=== PATIENT | male | born 1985 | race American Indian/Alaskan Native ===

== ENCOUNTER 2018-01-21 17:16 | Emergency (ER) | payer MEDICARE ==
[2018-01-22] MEDS ORDERED: ATIVAN ONE (02:45)
[2018-01-22] MEDS ORDERED: ATIVAN IM ONE (03:00)
--- NOTE | 2018-01-22 03:32 | Emergency Department Report ---
ED Laceration HPI - HPI Chief Complaint: Wound/Laceration Stated Complaint: GASH ON BOTTOM LIP Time Seen by Provider: 01/22/18 02:24 Occurred When: Yesterday Severity: mild Tetanus Status: Up to Date Laceration Symptoms: Yes Pain, No Foreign Body Sensation, No Numbness, No Weakness Other History: 32-year-old autistic male brought in by caregiver for a laceration to the bottom of his lip. Caregiver stated the patient was on a busIt was noted to have a laceration to his lower lip. He is up-to-date on all vaccines. ED Review of Systems ROS: Stated complaint: GASH ON BOTTOM LIP Other details as noted in HPI Constitutional: denies: chills, fever Eyes: denies: eye pain, eye discharge, vision change ENT: other (lip cut) Skin: other (lip cut) ED Past Medical Hx - Past Medical History Previous Medical History?: Yes Additional medical history: moderate intellectual disability, autism - Surgical History Past Surgical History?: No - Social History Smoking Status: Never Smoker - Medications Home Medications: Home Medications Medication Instructions Recorded Confirmed Last Taken Type Amoxicillin [Trimox CAP] 500 mg PO Q8H #15 capsule 01/22/18 Unknown Rx Laceration Physical Exam - Exam General: Vital signs noted. No distress. Alert and acting appropriately. Wound Length (cm): 2 Laceration Location: Other (lower lip) Laceration Exam: Yes Normal Distal CMS, No Foreign Body, No Exposed Tendon, Vessel, or Nerve, No Tendon Injury ED Course Vital Signs 01/21/18 17:29 Temperature 97.8 F Pulse Rate 94 H Respiratory 20 Rate Blood Pressure 108/78 O2 Sat by Pulse 95 Oximetry - Laceration /Wound Repair Lower Jaw Wound Location: face Wound Length (cm): 2 (vertical lower lip) Wound's Depth, Shape: into muscle, linear Wound Explored: no foreign body removed Irrigated w/ Saline (ccs): 45 Betadine Prep?: No Anesthesia: 1% Lidocaine Volume Anesthetic (ccs): 2 (buccal mucosa) Wound Repaired With: Dermabond Sterile Dressing Applied?: No Progress: Patient tolerated procedure well ED Medical Decision Making - Medical Decision Making Patient has been seen and evaluated by this provider as well as Dr. Keith. Dr. Keith came to an assisted with laceration repair. Patient was given 1 mg of Ativan IM to calm him down. Discussed patient caregiver that the glue should help hold for danger to while the healing process starts. Encouraged patient not to bite her pole at the lip. Place patient on antibiotics amoxicillin by mouth 500 mg twice a day for 5 days. Caregiver verbalized understanding Critical care attestation.: If time is entered above; I have spent that time in minutes in the direct care of this critically ill patient, excluding procedure time. ED Disposition Clinical Impression: Laceration of lower lip Qualifiers: Encounter type: initial encounter Qualified Code(s): S01.511A - Laceration without foreign body of lip, initial encounter Disposition: DC- TO HOME OR SELFCARE Is pt being admited?: No Does the pt Need Aspirin: No Condition: Stable Instructions: Skin Adhesive Care (ED), Laceration (ED) Additional Instructions: Please complete antibiotics as prescribed. Tylenol or Motrin for pain management. Please encourage patient not to pick and bite at his lower lip. Prescriptions: Amoxicillin [Trimox CAP] 500 mg PO Q8H #15 capsule Referrals: JOSE CHIRINOS MD [Primary Care Provider] - 3-5 Days Forms: Work/School Release Form(ED), Accompanied Note
[2018-01-22 03:53] VITALS: BP 112/82
== END 2018-01-22 03:52 | disposition home or self-care (01) ==
LOC: ED 17:16
DX: S01.511A Laceration without foreign body of lip, initial encounter (principal); X58.XXXA Exposure to other specified factors, initial encounter; Y93.89 Activity, other specified; Y92.89 Other specified places as the place of occurrence of the external cause; Y99.8 Other external cause status; F84.0 Autistic disorder
CPT/HCPCS: 12011; 96372; 99282; J2060

== ENCOUNTER 2019-03-02 12:19 | Inpatient (IN) | payer MEDICARE ==
--- NOTE | 2019-03-02 13:24 | Event Note ---
ED Screening Note Date of service: 03/02/19 Time: 13:20 ED Screening Note: 33 y o male brought in by pet care associate for abd pain hx of bowel obstruction This initial assessment/diagnostic orders/clinical plan/treatment(s) is/are subject to change based on patients health status, clinical progression and re- assessment by fellow clinical providers in the ED. Further treatment and workup at subsequent clinical providers discretion. Patient/guardian urged not to elope from the ED as their condition may be serious if not clinically assessed and managed. Initial orders include: labs/ct abd
[2019-03-02 14:03] LABS: Alanine Aminotransferase 22 units/L (7-56); Albumin 4.3 g/dL (3.9-5); BUN/Creatinine Ratio 13; Blood Urea Nitrogen 17 mg/dL (9-20); Calcium 9.5 mg/dL (8.4-10.2); Hemolysis Index 9
[2019-03-02] MEDS ORDERED: NACL 0.9% 1000 ML 1,000 ML IV ONE ×2 (14:19→17:58)
[2019-03-02 14:43] LABS: Basophils % (Auto) 0.5 % (0.0-1.8); Hematocrit 45.7 % (35.5-45.6); Hemoglobin 14.8 gm/dl (11.8-15.2); Lymphocytes # (Auto) 1.2 K/mm3 (1.2-5.4); Lymphocytes % (Auto) 14.5 % (13.4-35.0); Mean Corpuscular HGB Conc 32 % (32-34); Mean Corpuscular Volume 92 fl (84-94); Monocytes # (Auto) 0.8 K/mm3 (0.0-0.8); Platelet Count 331 K/mm3 (140-440); Red Blood Count 4.97 M/mm3 (3.65-5.03); Red Cell Distribution Width 14.1 % (13.2-15.2)
[2019-03-02 16:39] LABS: Bacteria,Urine 1+ /HPF (Negative); Bilirubin,Urine SM (Negative); Blood,Urine NEG (Negative); Color,Urine Amber (Yellow); Hyaline Casts,Urine 8 /LPF; Mucus,Urine 3+ /HPF
[2019-03-02 16:58] LABS: Ictotest,Urine Negative (Negative)
--- NOTE | 2019-03-02 17:38 | Cat Scan Report ---
CT ABDOMEN AND PELVIS WITHOUT CONTRAST INDICATION: pain. TECHNIQUE: Axial CT images were obtained through the abdomen and pelvis without IV contrast. All CT scans at [facility] location are performed using CT dose reduction for ALARA by means of automated exposure control. COMPARISON: CT abdomen and pelvis without contrast 03/02/2019 FINDINGS: Moderate amount of streak artifact is present from the patient's arms folded over the abdom en rather than left it overhead or placed along side the abdomen. LOWER CHEST: No significant abnormality. LIVER: No significant abnormality. GALLBLADDER: No significant abnormality. BILE DUCTS: No significant abnormality. PANCREAS: No significant abnormality. SPLEEN: No significant abnormality. ADRENALS: No significant abnormality. RIGHT KIDNEY and URETER: No significant abnormality. LEFT KIDNEY and URETER: No significant abnormality. STOMACH and SMALL BOWEL: Moderately dilated fluid-filled loops of small bowel with transition point s een in the distal ileum characteristic for distal small bowel obstruction. COLON: No significant abnormality. APPENDIX: Not visualized possibly surgically absent. PERITONEUM: No free fluid. No free air. No fluid collection. LYMPH NODES: No significant adenopathy. AORTA and ARTERIES: No significant abnormality. IVC and VEINS: No significant abnormality. URINARY BLADDER: No significant abnormality. REPRODUCTIVE ORGANS: No significant abnormality. ADDITIONAL FINDINGS: None. SKELETAL SYSTEM: No significant abnormality. IMPRESSION: 1. Distal small bowel obstruction. Signer Name: Connor Martinez MD Signed: 03/02/2019 5:33 PM Workstation Name: [id number]
--- NOTE | 2019-03-02 18:11 | Emergency Department Report ---
ED Abdominal Pain HPI - General Chief Complaint: Abdominal Pain Stated Complaint: ABDOMINAL PAIN Time Seen by Provider: 03/02/19 13:20 Source: patient Mode of arrival: Ambulatory Limitations: Other - History of Present Illness Initial Comments: 33 yo with a past medical history of a moderate intellectual delay, autism, and small bowel obstruction is possible with complaints of decreased by mouth intake today. Patient was apparently admitted to [facility] last week for first episode of small bowel obstruction. No previous surgeries on his abdomen reported. Patient was treated with bowel rest and NG tube with resolution of obstruction. Patient has been doing fine since discharge him, today he stopped eating. Last bowel movement was this morning. No vomiting or fever reported. Patient is unable to provide any history of present illness due to intellectual disability.and history of present illness obtained from asphalt mixer and father at the bedside. Severity scale (0 -10): 0 - Related Data Previous Rx's Medication Instructions Recorded Last Taken Type Amoxicillin [Trimox CAP] 500 mg PO Q8H #15 capsule 01/22/18 Unknown Rx Allergies Allergy/AdvReac Type Severity Reaction Status Date / Time No Known Allergies Allergy Verified 01/22/18 03:05 ED Review of Systems ROS: Stated complaint: ABDOMINAL PAIN Other details as noted in HPI Comment: Unobtainable due to pts medical conditions ED Past Medical Hx - Past Medical History Previous Medical History?: Yes Additional medical history: moderate intellectual disability, autism - Surgical History Past Surgical History?: Yes - Social History Smoking Status: Never Smoker Substance Use Type: None - Medications Home Medications: Home Medications Medication Instructions Recorded Confirmed Last Taken Type Amoxicillin [Trimox CAP] 500 mg PO Q8H #15 capsule 01/22/18 Unknown Rx ED Physical Exam - General Limitations: Other - Other Other exam information: General: No acute distress Head: Atraumatic Eyes: Normal appearance, Pupils equal and reactive to light, extraocular movements intact ENT: Normal oropharynx Neck: Normal appearance, no posterior or midline tenderness, no meningismus Chest: Clear to auscultation bilaterally, no wheezes, rales, or crackles CV: Regular rate and rhythm Abdomen: soft, diminished bowel sound, nontender, nondistended, no rebound or guarding Back: Nontender Extremity: Normal inspection, full range of motion, nontender Neuro: Alert no gross motor or sensory deficit Skin: No rash, redness, warmth ED Course Vital Signs 03/02/19 03/02/19 13:13 17:48 Temperature 97.2 F L 97.8 F Pulse Rate 123 H 112 H Respiratory 18 20 Rate Blood Pressure 131/86 Blood Pressure 120/80 [Left] O2 Sat by Pulse 97 96 Oximetry - Consultations Consultation #1: 03/02/19 18:45 Dr Gio guerrero surgery, rec ngt, admission, will consult ED Medical Decision Making - Lab Data Result diagrams: 03/02/19 13:28 03/02/19 13:28 Lab Results 03/02/19 03/02/19 03/02/19 Range/Units 13:28 13:28 Unknown WBC 8.4 (4.5-11.0) K/mm3 RBC 4.97 (3.65-5.03) M/mm3 Hgb 14.8 (11.8-15.2) gm/dl Hct 45.7 H (35.5-45.6) % MCV 92 (84-94) fl MCH 30 (28-32) pg MCHC 32 (32-34) % RDW 14.1 (13.2-15.2) % Plt Count 331 (140-440) K/mm3 Lymph % (Auto) 14.5 (13.4-35.0) % [facility] % (Auto) 9.0 H (0.0-7.3) % Eos % (Auto) 0.0 (0.0-4.3) % Baso % (Auto) 0.5 (0.0-1.8) % Lymph # 1.2 (1.2-5.4) K/mm3 [facility] # 0.8 (0.0-0.8) K/mm3 Eos # 0.0 (0.0-0.4) K/mm3 Baso # 0.0 (0.0-0.1) K/mm3 Seg Neutrophils % 76.0 H (40.0-70.0) % Seg Neutrophils # 6.4 (1.8-7.7) K/mm3 Sodium 139 (137-145) mmol/L Potassium 4.5 (3.6-5.0) mmol/L Chloride 102.0 (98-107) mmol/L Carbon Dioxide 21 L (22-30) mmol/L Anion Gap 21 mmol/L BUN 17 (9-20) mg/dL Creatinine 1.3 (0.8-1.5) mg/dL Estimated GFR > 60 ml/min BUN/Creatinine Ratio 13 % Glucose 97 (75-100) mg/dL Calcium 9.5 (8.4-10.2) mg/dL Total Bilirubin 0.30 (0.1-1.2) mg/dL AST 15 (5-40) units/L ALT 22 (7-56) units/L Alkaline Phosphatase 76 (35-129) units/L Total Protein 8.5 H (6.3-8.2) g/dL Albumin 4.3 (3.9-5) g/dL Albumin/Globulin Ratio 1.0 % Lipase 26 (13-60) units/L Urine Color Regine (Yellow) Urine Turbidity Slightly-cloudy (Clear) Urine pH 5.0 (5.0-7.0) Ur Specific [place] 1.032 H (1.003-1.030) Urine Protein 30 mg/dl (Negative) mg/dL Urine Glucose (UA) Neg (Negative) mg/dL Urine Ketones Tr (Negative) mg/dL Urine Blood Neg (Negative) Urine Nitrite Neg (Negative) Urine Bilirubin Sm (Negative) Urine Ictotest Negative (Negative) Urine Urobilinogen 4.0 (<2.0) mg/dL Ur Leukocyte Esterase Neg (Negative) Urine WBC (Auto) 4.0 (0.0-6.0) /HPF Urine RBC (Auto) 3.0 (0.0-6.0) /HPF U Epithel Cells (Auto) < 1.0 (0-13.0) /HPF Urine Bacteria (Auto) 1+ (Negative) /HPF Hyaline Casts 8 /LPF Urine Mucus 3+ /HPF - Radiology Data Radiology results: report reviewed CT ABDOMEN AND PELVIS WITHOUT CONTRAST INDICATION: pain. TECHNIQUE: Axial CT im ages were obtained through the abdomen and pelvis without IV contrast. All CT scans at this location are performed using CT dose reduction for ALARA by means of automated exposure control. COMPARISON: CT abdomen and pelvis without contrast 03/02/2019 FINDINGS: Moderate amount of streak artifact is present from the patient's arms folded over the abdomen rather than left it overhead or placed along side the abdomen. LOWER CHEST: No significant abnormality. LIVER: No significant abnormality. GALLBLADDER: No significant abnormality. BILE DUCTS: No significant abnormality. PANCREAS: No significant abnormality. SPLEEN: No significant abnormality. ADRENALS: No significant abnormality. RIGHT KIDNEY and URETER: No significant abnormality. LEFT KIDNEY and URETER: No significant abnormality. STOMACH and SMALL BOWEL: Moderately dilated fluid-filled loops of small bowel with transition point seen in the distal ileum characteristic for distal small bowel obstruction. COLON: No significant abnormality. APPENDIX: Not visualized possibly surgically absent. PERITONEUM: No free fluid. No free air. No fluid collection. LYMPH NODES: No significant adenopathy. AORTA and ARTERIES: No significant abnormality. IVC and VEINS: No significant abnormality. URINARY BLADDER: No significant abnormality. REPRODUCTIVE ORGANS: No significant abnormality. ADDITIONAL FINDINGS: None. SKELETAL SYSTEM: No significant abnormality. IMPRESSION: 1. Distal small bowel obstruction. - Medical Decision Making Patient shows signs of distal small bowel obstruction. Case discussed with general surgeon software test automation engineer. CT reviewed and shows significant distention of small bowel different NG tube recommended. Father and care to asphalt mixer formed a plan for NG tube and admission to the hospital. - Differential Diagnosis obstruction, constipation, dehydration, ileus Critical Care Time: No Critical care attestation.: If time is entered above; I have spent that time in minutes in the direct care of this critically ill patient, excluding procedure time. ED Disposition Clinical Impression: Small bowel obstruction, Dehydration Disposition: DC-09 OP ADMIT IP TO THIS HOSP Is pt being admited?: Yes Condition: Stable Time of Disposition: 18:13 (Dr Garcia/hosp)
[2019-03-02] MEDS ORDERED: LIDOCAINE VISCOUS 2% PO ONE (18:17)
[2019-03-02] MEDS ORDERED: GEODON IM ONE (18:27)
[2019-03-02] MEDS ORDERED: SODIUM CHLORIDE FLUSH SYRINGE 10 ML IV PRN (19:32)
[2019-03-02] MEDS ORDERED: ZOFRAN IV PRN (19:32)
[2019-03-02] MEDS ORDERED: MORPHINE IV PRN (19:32)
[2019-03-02] MEDS ORDERED: TYLENOL PO PRN (19:32)
[2019-03-02] MEDS ORDERED: ATIVAN IV ONE ×2 (19:55→23:11)
--- NOTE | 2019-03-02 20:06 | History and Physical Report ---
History of Present Illness Date of examination: 03/02/19 Date of admission: 03/02/2019 Chief complaint: Abdominal Pain, abdominal distention History of present illness: 33-year-old -[place] male who is a resident of [facility] with history of moderate intellectual delay, autism whp [facility] with c/o abdominal pain and distention, and decreased oral intake for the past day. Pt is unable to provide his due to his intellectual delay. His father is present at bedside and has assisted with providing history. Pt's father states that pt was hospitalized last week at [facility] for small bowel obstruction. He was treated conservatively with bowel rest and decompress via NGT. Pt has no history of abdominal surgeries. Father also states that pt has had poor oral intake for the past day. There are no reports of constipation, nausea, vomiting, or diarrhea. Past History Past Medical History: other (moderate intellectual delay autism, SBO) Past Surgical History: No surgical history Social history: other (Lives in [facility]) Family history: no significant family history Medications and Allergies Allergies Allergy/AdvReac Type Severity Reaction Status Date / Time No Known Allergies Allergy Verified 01/22/18 03:05 Home Medications Medication Instructions Recorded Confirmed Last Taken Type Amoxicillin [Trimox CAP] 500 mg PO Q8H #15 capsule 01/22/18 Unknown Rx Active Meds: Active Medications Acetaminophen (Tylenol) 650 mg PO Q4H PRN PRN Reason: Pain MILD(1-3)/Fever >100.5/MENA Sodium Chloride (Nacl 0.9% 1000 Ml) 1,000 mls @ 100 mls/hr IV DIRECT ANTOINE Morphine Sulfate (Morphine) 2 mg IV Q4H PRN PRN Reason: Pain, Moderate (4-6) Ondansetron HCl (Zofran) 4 mg IV Q8H PRN PRN Reason: Nausea And Vomiting Sodium Chloride (Sodium Chloride Flush Syringe 10 Ml) 10 ml IV BID ANTOINE Sodium Chloride (Sodium Chloride Flush Syringe 10 Ml) 10 ml IV PRN PRN PRN Reason: LINE FLUSH Review of Systems ROS unobtainable: due to mental status Exam - Physical Exam Narrative exam: Physical exam General appearance: Present: No apparent distress, awake, alert, unable to determine orientation,moderate intellectual delay, adult -[place] male - EENT Eyes: Present: PERRL, EOM intact ENT: hearing intact, normal dentition - Neck Neck: Present: supple, normal ROM - Respiratory Respiratory effort: Non-labored Respiratory: CTA bilaterally - Cardiovascular Heart rate: 112 (bpm) Rhythm: SR Heart Sounds: Present: S1 & S2. Absent: rub, click - Extremities Extremities: no ischemia, pulses intact, - Peripheral Assessment Peripheral Pulses: within normal limits - Abdominal General gastrointestinal: distended, mild diffuse tenderness, active bsx4 - Integumentary Integumentary: Present: warm, dry - Musculoskeletal Musculoskeletal: able to move all extremities x4 -Neurological Neurological: CN II-XII grossly intact - Psychiatric Psychiatric: flat affect - Constitutional Vitals: Temp Pulse Resp BP Pulse Ox 97.8 F 112 H 20 120/80 94 03/02/19 17:48 03/02/19 17:48 03/02/19 19:27 03/02/19 17:48 03/02/19 19:27 Results - Labs CBC & Chem 7: 03/02/19 13:28 03/02/19 13:28 Labs: Laboratory Last Values WBC 8.4 K/mm3 (4.5-11.0) 03/02/19 13:28 RBC 4.97 M/mm3 (3.65-5.03) 03/02/19 13:28 Hgb 14.8 gm/dl (11.8-15.2) 03/02/19 13:28 Hct 45.7 % (35.5-45.6) H 03/02/19 13:28 MCV 92 fl (84-94) 03/02/19 13:28 MCH 30 pg (28-32) 03/02/19 13:28 MCHC 32 % (32-34) 03/02/19 13:28 RDW 14.1 % (13.2-15.2) 03/02/19 13:28 Plt Count 331 K/mm3 (140-440) 03/02/19 13:28 Lymph % (Auto) 14.5 % (13.4-35.0) 03/02/19 13:28 Jay % (Auto) 9.0 % (0.0-7.3) H 03/02/19 13:28 Eos % (Auto) 0.0 % (0.0-4.3) 03/02/19 13:28 Baso % (Auto) 0.5 % (0.0-1.8) 03/02/19 13:28 Lymph # 1.2 K/mm3 (1.2-5.4) 03/02/19 13:28 Jay # 0.8 K/mm3 (0.0-0.8) 03/02/19 13:28 Eos # 0.0 K/mm3 (0.0-0.4) 03/02/19 13:28 Baso # 0.0 K/mm3 (0.0-0.1) 03/02/19 13:28 Seg Neutrophils % 76.0 % (40.0-70.0) H 03/02/19 13:28 Seg Neutrophils # 6.4 K/mm3 (1.8-7.7) 03/02/19 13:28 Sodium 139 mmol/L (137-145) 03/02/19 13:28 Potassium 4.5 mmol/L (3.6-5.0) 03/02/19 13:28 Chloride 102.0 mmol/L (98-107) 03/02/19 13:28 Carbon Dioxide 21 mmol/L (22-30) L 03/02/19 13:28 21 mmol/L 03/02/19 13:28 BUN 17 mg/dL (9-20) 03/02/19 13:28 1.3 mg/dL (0.8-1.5) 03/02/19 13:28 Estimated GFR > 60 ml/min 03/02/19 13:28 13 % 03/02/19 13:28 Glucose 97 mg/dL (75-100) 03/02/19 13:28 Calcium 9.5 mg/dL (8.4-10.2) 03/02/19 13:28 0.30 mg/dL (0.1-1.2) 03/02/19 13:28 AST 15 units/L (5-40) 03/02/19 13:28 ALT 22 units/L (7-56) 03/02/19 13:28 76 units/L (35-129) 03/02/19 13:28 8.5 g/dL (6.3-8.2) H 03/02/19 13:28 4.3 g/dL (3.9-5) 03/02/19 13:28 1.0 % 03/02/19 13:28 26 units/L (13-60) 03/02/19 13:28 Regine (Yellow) 03/02/19 Unknown Slightly-cloudy (Clear) 03/02/19 Unknown 5.0 (5.0-7.0) 03/02/19 Unknown Ur Specific [place] 1.032 (1.003-1.030) H 03/02/19 Unknown 30 mg/dl mg/dL (Negative) 03/02/19 Unknown Neg mg/dL (Negative) 03/02/19 Unknown Tr mg/dL (Negative) 03/02/19 Unknown Neg (Negative) 03/02/19 Unknown Neg (Negative) 03/02/19 Unknown Sm (Negative) 03/02/19 Unknown Negative (Negative) 03/02/19 Unknown 4.0 mg/dL (<2.0) 03/02/19 Unknown Ur Leukocyte Esterase Neg (Negative) 03/02/19 Unknown 4.0 /HPF (0.0-6.0) 03/02/19 Unknown 3.0 /HPF (0.0-6.0) 03/02/19 Unknown U Epithel Cells (Auto) < 1.0 /HPF (0-13.0) 03/02/19 Unknown 1+ /HPF (Negative) 03/02/19 Unknown Hyaline Casts 8 /LPF 03/02/19 Unknown 3+ /HPF 03/02/19 Unknown - Imaging and Cardiology Imaging and Cardiology: CT Abd/Pelvis: FINDINGS: Moderate amount of streak artifact is present from the patient's arms folded over the abdomen rather than left it overhead or placed along side the abdomen. LOWER CHEST: No significant abnormality. LIVER: No significant abnormality. GALLBLADDER: No significant abnormality. BILE DUCTS: No significant abnormality. PANCREAS: No significant abnormality. SPLEEN: No significant abnormality. ADRENALS: No significant abnormality. RIGHT KIDNEY and URETER: No significant abnormality. LEFT KIDNEY and URETER: No significant abnormality. STOMACH and SMALL BOWEL: Moderately dilated fluid-filled loops of small bowel with transition point seen in the distal ileum characteristic for distal small bowel obstruction. COLON: No significant abnormality. APPENDIX: Not visualized possibly surgically absent. PERITONEUM: No free fluid. No free air. No fluid collection. LYMPH NODES: No significant adenopathy. AORTA and ARTERIES: No significant abnormality. IVC and VEINS: No significant abnormality. URINARY BLADDER: No significant abnormality. REPRODUCTIVE ORGANS: No significant abnormality. ADDITIONAL FINDINGS: None. SKELETAL SYSTEM: No significant abnormality. IMPRESSION: 1. Distal small bowel obstruction. Assessment and Plan Assessment and plan: 33-year-old -[place] male who is a resident of [facility] with history of moderate intellectual delay, autism whp presents to [facility] ED with c/o abdominal pain and distention, and decreased oral intake for the past day. This is pt's second episode of bowel obstruction within the past week and a half. Small Bowel obstruction -CT Abd/ Pelvis revealed; Moderately dilated fluid-filled loops of small bowel with transition point seen in the distal ileum characteristic for distal small bowel obstruction -Pt Abd is distended -NPO bowel rest -NGT to LIS -Hydrate with IVF -General Surgery (Dr. Chavis) consulted DVT PPX -SCD's Advance Directives: No VTE prophylaxis?: Mechanical Plan of care discussed with patient/family: Yes
[2019-03-02] MEDS: SODIUM CHLORIDE FLUSH SYRINGE 10 ML IV SCH (22:05)
[2019-03-03 04:34] LABS: Hematocrit 39.1 % (35.5-45.6); Hemoglobin 12.8 gm/dl (11.8-15.2); Mean Corpuscular HGB Conc 33 % (32-34); Mean Corpuscular Volume 92 fl (84-94); Platelet Count 253 K/mm3 (140-440); Red Blood Count 4.26 M/mm3 (3.65-5.03); Red Cell Distribution Width 13.5 % (13.2-15.2)
[2019-03-03 04:50] LABS: BUN/Creatinine Ratio 18; Blood Urea Nitrogen 18 mg/dL (9-20); Calcium 8.4 mg/dL (8.4-10.2); Hemolysis Index 44
[2019-03-03 05:24] LABS: Basophils % (Manual) 0 % (0.0-1.8); Eosinophils % (Manual) 0 % (0.0-4.3); Platelet Estimate Consistent w Auto; RBC Morphology Normal; Total Cells Counted 100
--- NOTE | 2019-03-03 08:57 | XRay Report ---
ABDOMEN 1 VIEW(S) INDICATION / CLINICAL INFORMATION: assess SBO. COMPARISON: None available. FINDINGS: TUBES / LINES: NG tube is seen with the tip in the region of the pylorus. BOWEL GAS PATTERN: There is diffuse distention of the colon with only minimal small bowel distention. The findings are more consistent with ileus than bowel obstruction. FREE AIR / EXTRALUMINAL GAS: None seen. ADDITIONAL FINDINGS: No significant additional findings. IMPRESSION: 1. NG tube in stomach. Probable mild to moderate ileus Signer Name: Heath Hanson MD Signed: 03/03/2019 8:53 AM Workstation Name: [id number]
[2019-03-03] MEDS: SODIUM CHLORIDE FLUSH SYRINGE 10 ML IV SCH ×2 (12:59→22:32)
--- NOTE | 2019-03-03 14:24 | Progress Note ---
Assessment and Plan Assessment and plan: Patient is a 33-year-old [place] male from [place] with history of moderate intellectual delay, autism who presents to [facility] ED with c/o abdominal pain and distention, and decreased oral intake for the past day. Pt is unable to provide his due to his intellectual delay. His father is present at bedside and has assisted with providing history. Pt's father states that pt was hospitalized last week at [facility] [place] for small bowel obstruction. He was treated conservatively with bowel rest and decompress via NGT. Pt has no history of abdominal surgeries. Father also states that pt has had poor oral intake for the past day. There are no reports of constipation, nausea, vomiting, or diar doc. CT Abd/Pelvis IMPRESSION: 1. Distal small bowel obstruction. Small Bowel obstruction -CT Abd/ Pelvis revealed; Moderately dilated fluid-filled loops of small bowel with transition point seen in the distal ileum characteristic for distal small bowel obstruction -Pt Abd is distended -NPO bowel rest -NGT to LIS -Hydrate with IVF -General Surgery (Dr. Chavis) consulted History Interval history: Patient was seen and examined. Follow-up on current diagnosis of SBO. No overnight events reported to me, but pt given IV ativan for anxiety and agitation, now snoring. Imaging, nursing note, chart, labs and old chart reviewed. Discussed with father at bedside, Mr. Omari Stanley. Hospitalist Physical - Physical exam Narrative exam: Gen: WDWN, obese, NAD, sleeping HEENT: NCAT, EOMI, PERRL, OP Clear Neck: supple, no adenopathy, no thyromegaly, no JVD CVS/Heart: Reg tachy, normal S1S2, pulses present bilaterally Chest/Lungs: CTA B, Symmetrical chest expansion, good air entry bilaterally GI/Abdomen: soft, protubernant, hypoactive bowel sounds, no guarding or rebound /Bladder: no suprapubic tenderness, no CVA or paraspinal tenderness Extermity/Skin: no c/c/e, no obvious rash MSK: doesn't follow commands Neuro: CN 2-12 grossly intact, doesn't follow commands Psych: sleeping - Constitutional Vitals: Temp Pulse Resp BP Pulse Ox 98.7 F 102 H 20 127/75 96 03/03/19 12:30 03/03/19 05:36 03/03/19 12:30 03/03/19 12:30 03/03/19 05:36 Results - Labs CBC & Chem 7: 03/03/19 03:57 03/03/19 03:57 Labs: Laboratory Last Values WBC 6.0 K/mm3 (4.5-11.0) 03/03/19 03:57 RBC 4.26 M/mm3 (3.65-5.03) 03/03/19 03:57 Hgb 12.8 gm/dl (11.8-15.2) 03/03/19 03:57 Hct 39.1 % (35.5-45.6) D 03/03/19 03:57 MCV 92 fl (84-94) 03/03/19 03:57 MCH 30 pg (28-32) 03/03/19 03:57 MCHC 33 % (32-34) 03/03/19 03:57 RDW 13.5 % (13.2-15.2) 03/03/19 03:57 Plt Count 253 K/mm3 (140-440) 03/03/19 03:57 Lymph % (Auto) 14.5 % (13.4-35.0) 03/02/19 13:28 [place] % (Auto) 9.0 % (0.0-7.3) H 03/02/19 13:28 Eos % (Auto) 0.0 % (0.0-4.3) 03/02/19 13:28 Baso % (Auto) 0.5 % (0.0-1.8) 03/02/19 13:28 Lymph # 1.2 K/mm3 (1.2-5.4) 03/02/19 13:28 [place] # 0.8 K/mm3 (0.0-0.8) 03/02/19 13:28 Eos # 0.0 K/mm3 (0.0-0.4) 03/02/19 13:28 Baso # 0.0 K/mm3 (0.0-0.1) 03/02/19 13:28 Add Manual Diff Complete 03/03/19 03:57 Total Counted 100 03/03/19 03:57 Seg Neutrophils % 76.0 % (40.0-70.0) H 03/02/19 13:28 Seg Neuts % (Manual) 70.0 % (40.0-70.0) 03/03/19 03:57 0 % 03/03/19 03:57 20.0 % (13.4-35.0) 03/03/19 03:57 Reactive Lymphs % (Man) 5.0 % 03/03/19 03:57 4.0 % (0.0-7.3) 03/03/19 03:57 0 % (0.0-4.3) 03/03/19 03:57 0 % (0.0-1.8) 03/03/19 03:57 1.0 % 03/03/19 03:57 0 % 03/03/19 03:57 0 % 03/03/19 03:57 0 % 03/03/19 03:57 Nucleated RBC % Not Reportable 03/03/19 03:57 Seg Neutrophils # 6.4 K/mm3 (1.8-7.7) 03/02/19 13:28 Seg Neutrophils # Man 4.2 K/mm3 (1.8-7.7) 03/03/19 03:57 Band Neutrophils # 0.0 K/mm3 03/03/19 03:57 1.2 K/mm3 (1.2-5.4) 03/03/19 03:57 Abs React Lymphs (Man) 0.3 K/mm3 03/03/19 03:57 0.2 K/mm3 (0.0-0.8) 03/03/19 03:57 0.0 K/mm3 (0.0-0.4) 03/03/19 03:57 0.0 K/mm3 (0.0-0.1) 03/03/19 03:57 0.1 K/mm3 03/03/19 03:57 0.0 K/mm3 03/03/19 03:57 0.0 K/mm3 03/03/19 03:57 Blast Cells # 0.0 K/mm3 03/03/19 03:57 WBC Morphology Not Reportable 03/03/19 03:57 Hypersegmented Neuts Not Reportable 03/03/19 03:57 Hyposegmented Neuts Not Reportable 03/03/19 03:57 Hypogranular Neuts Not Reportable 03/03/19 03:57 Not Reportable 03/03/19 03:57 Not Reportable 03/03/19 03:57 Not Reportable 03/03/19 03:57 Not Reportable 03/03/19 03:57 Not Reportable 03/03/19 03:57 Not Reportable 03/03/19 03:57 Consistent w auto 03/03/19 03:57 Not Reportable 03/03/19 03:57 Plt Clumps, EDTA Not Reportable 03/03/19 03:57 Not Reportable 03/03/19 03:57 Not Reportable 03/03/19 03:57 Not Reportable 03/03/19 03:57 Plt Morphology Comment Not Reportable 03/03/19 03:57 RBC Morphology Normal 03/03/19 03:57 Dimorphic RBCs Not Reportable 03/03/19 03:57 Not Reportable 03/03/19 03:57 Not Reportable 03/03/19 03:57 Not Reportable 03/03/19 03:57 Not Reportable 03/03/19 03:57 Not Reportable 03/03/19 03:57 Not Reportable 03/03/19 03:57 Not Reportable 03/03/19 03:57 Not Reportable 03/03/19 03:57 Not Reportable 03/03/19 03:57 Not Reportable 03/03/19 03:57 Not Reportable 03/03/19 03:57 Not Reportable 03/03/19 03:57 Not Reportable 03/03/19 03:57 Not Reportable 03/03/19 03:57 Not Reportable 03/03/19 03:57 Not Reportable 03/03/19 03:57 Not Reportable 03/03/19 03:57 Not Reportable 03/03/19 03:57 Not Reportable 03/03/19 03:57 Acanthocytes (Spur) Not Reportable 03/03/19 03:57 Rouleaux Not Reportable 03/03/19 03:57 Not Reportable 03/03/19 03:57 Not Reportable 03/03/19 03:57 Not Reportable 03/03/19 03:57 Not Reportable 03/03/19 03:57 Hem Pathologist Commnt No 03/03/19 03:57 Sodium 140 mmol/L (137-145) 03/03/19 03:57 Potassium 4.3 mmol/L (3.6-5.0) 03/03/19 03:57 Chloride 107.1 mmol/L (98-107) H 03/03/19 03:57 Carbon Dioxide 21 mmol/L (22-30) L 03/03/19 03:57 16 mmol/L 03/03/19 03:57 BUN 18 mg/dL (9-20) 03/03/19 03:57 1.0 mg/dL (0.8-1.5) 03/03/19 03:57 Estimated GFR > 60 ml/min 03/03/19 03:57 18 % 03/03/19 03:57 Glucose 93 mg/dL (75-100) 03/03/19 03:57 Calcium 8.4 mg/dL (8.4-10.2) 03/03/19 03:57 0.30 mg/dL (0.1-1.2) 03/02/19 13:28 AST 15 units/L (5-40) 03/02/19 13:28 ALT 22 units/L (7-56) 03/02/19 13:28 76 units/L (35-129) 03/02/19 13:28 8.5 g/dL (6.3-8.2) H 03/02/19 13:28 4.3 g/dL (3.9-5) 03/02/19 13:28 1.0 % 03/02/19 13:28 26 units/L (13-60) 03/02/19 13:28 Reg[place] (Yellow) 03/02/19 Unknown Slightly-cloudy (Clear) 03/02/19 Unknown 5.0 (5.0-7.0) 03/02/19 Unknown Ur Specific [place] 1.032 (1.003-1.030) H 03/02/19 Unknown 30 mg/dl mg/dL (Negative) 03/02/19 Unknown Neg mg/dL (Negative) 03/02/19 Unknown Tr mg/dL (Negative) 03/02/19 Unknown Neg (Negative) 03/02/19 Unknown Neg (Negative) 03/02/19 Unknown Sm (Negative) 03/02/19 Unknown Negative (Negative) 03/02/19 Unknown 4.0 mg/dL (<2.0) 03/02/19 Unknown Ur Leukocyte Esterase Neg (Negative) 03/02/19 Unknown 4.0 /HPF (0.0-6.0) 03/02/19 Unknown 3.0 /HPF (0.0-6.0) 03/02/19 Unknown U Epithel Cells (Auto) < 1.0 /HPF (0-13.0) 03/02/19 Unknown 1+ /HPF (Negative) 03/02/19 Unknown Hyaline Casts 8 /LPF 03/02/19 Unknown 3+ /HPF 03/02/19 Unknown Active Medications - Current Medications Current Medications: Generic Name Dose Route Start Last Admin Trade Name Freq PRN Reason Stop Dose Admin Acetaminophen 650 mg 03/02/19 19:32 Tylenol PO Q4H PRN Pain MILD(1-3)/Fever >100.5/MENA Sodium Chloride 1,000 mls @ 100 mls/hr 03/02/19 20:00 Nacl 0.9% 1000 Ml IV DIRECT ANTOINE Morphine Sulfate 2 mg 03/02/19 19:32 Morphine IV Q4H PRN Pain, Moderate (4-6) Ondansetron HCl 4 mg 03/02/19 19:32 Zofran IV Q8H PRN Nausea And Vomiting Sodium Chloride 10 ml 03/02/19 22:00 03/03/19 12:59 Sodium Chloride Flush Syringe 10 Ml IV 10 ml BID ANTOINE Administration Sodium Chloride 10 ml 03/02/19 19:32 Sodium Chloride Flush Syringe 10 Ml IV PRN PRN LINE FLUSH
--- NOTE | 2019-03-03 15:05 | Consultation ---
History of Present Illness Consult date: 03/03/19 Reason for consult: abdominal pain Requesting physician: JUNI OSW Chief complaint: not eating - History of present illness History of present illness: 33 yo M with autism and developmental delay who currently lives in a usp was brought to the ED by father as the patient stopped eating. They were in [facility] last week for first episode of small bowel obstruction. Patient was treated with bowel rest and NG tube with resolution of obstruction. Patient has been doing fine since discharge him, today he stopped eating. No vomiting or fever reported. Patient is unable to provide any history of present illness due to intellectual disability.and history of present illness obtained from mobility engineer and father at the bedside. General surgery consulted for possible bowel obstruction. Today, patient had a large bowel movement in bed. Father and usp x ray control equipment repairer reports that he is acting back to normal. He is asking to eat and drink. He is not acting like he was when they brought him to the emergency room. Past History Past Medical History: other (moderate intellectual delay autism, SBO) Past Surgical History: Other (COAL CHEMIST shunt at the age of 4) Social history: other (Lives in usp for autistic adults) Family history: no significant family history Medications and Allergies Allergies Allergy/AdvReac Type Severity Reaction Status Date / Time No Known Allergies Allergy Verified 01/22/18 03:05 Home Medications Medication Instructions Recorded Confirmed Last Taken Type Amoxicillin [Trimox CAP] 500 mg PO Q8H #15 capsule 01/22/18 Unknown Rx Benztropine [Cogentin] 0.5 mg PO 03/03/[address] [Holly Escobar] 500 mg PO QHS 03/03/19 03/03/19 Unknown History Divalproex Sodium 250 mg PO TID 03/03/19 03/03/19 Unknown History FLUoxetine [PROzac] 20 mg PO DAILY 03/03/19 03/03/19 Unknown History Miralax QDAY 03/03/19 Unknown History Topiramate 50 mg PO BID 03/03/19 03/03/19 Unknown History clonazePAM [Klonopin] 1 mg PO TID 03/03/19 03/03/19 Unknown History Active Meds: Active Medications Acetaminophen (Tylenol) 650 mg PO Q4H PRN PRN Reason: Pain MILD(1-3)/Fever >100.5/MENA Sodium Chloride (Nacl 0.9% 1000 Ml) 1,000 mls @ 100 mls/hr IV DIRECT ANTOINE Morphine Sulfate (Morphine) 2 mg IV Q4H PRN PRN Reason: Pain, Moderate (4-6) Ondansetron HCl (Zofran) 4 mg IV Q8H PRN PRN Reason: Nausea And Vomiting Sodium Chloride (Sodium Chloride Flush Syringe 10 Ml) 10 ml IV BID ANTOINE Last Admin: 03/03/19 12:59 Dose: 10 ml Documented by: Sodium Chloride (Sodium Chloride Flush Syringe 10 Ml) 10 ml IV PRN PRN PRN Reason: LINE FLUSH Review of Systems ROS unobtainable: due to mental status Exam Vital Signs Temp Pulse Resp BP Pulse Ox 97.2 F L 123 H 18 131/86 97 03/02/19 13:13 03/02/19 13:13 03/02/19 13:13 03/02/19 13:13 03/02/19 13:13 - General physical appearance Positive: well developed, well nourished, no distress, no pain, obese, other (smiling at times. Does not appear ill or in discomfort) - Respiratory Positive: normal expansion, normal respiratory effort, clear to auscultation - Cardiovascular Rhythm: regular - Abdomen Abdomen: Present: soft, bowel sounds hypoactive. Absent: tender, masses, rebound, guarding, rigid, wound, surgical scars (could not find incision for the reported COAL CHEMIST shunt) - Integumentary no rash, no growths, no abnormal pigmentation Results - Labs 03/03/19 03:57 03/03/19 03:57 Abnormal lab results 03/02/19 03/03/19 Range/Units Unknown 03:57 Chloride 107.1 H (98-107) mmol/L Carbon Dioxide 21 L (22-30) mmol/L Ur Specific [place] 1.032 H (1.003-1.030) Diabetes panel 03/03/19 Range/Units 03:57 Sodium 140 (137-145) mmol/L Potassium 4.3 (3.6-5.0) mmol/L Chloride 107.1 H (98-107) mmol/L Carbon Dioxide 21 L (22-30) mmol/L BUN 18 (9-20) mg/dL Creatinine 1.0 (0.8-1.5) mg/dL Glucose 93 (75-100) mg/dL Calcium 8.4 (8.4-10.2) mg/dL Calcium panel 03/03/19 Range/Units 03:57 Calcium 8.4 (8.4-10.2) mg/dL Pituitary panel 03/03/19 Range/Units 03:57 Sodium 140 (137-145) mmol/L Potassium 4.3 (3.6-5.0) mmol/L Chloride 107.1 H (98-107) mmol/L Carbon Dioxide 21 L (22-30) mmol/L BUN 18 (9-20) mg/dL Creatinine 1.0 (0.8-1.5) mg/dL Glucose 93 (75-100) mg/dL Calcium 8.4 (8.4-10.2) mg/dL Adrenal panel 03/03/19 Range/Units 03:57 Sodium 140 (137-145) mmol/L Potassium 4.3 (3.6-5.0) mmol/L Chloride 107.1 H (98-107) mmol/L Carbon Dioxide 21 L (22-30) mmol/L BUN 18 (9-20) mg/dL Creatinine 1.0 (0.8-1.5) mg/dL Glucose 93 (75-100) mg/dL Calcium 8.4 (8.4-10.2) mg/dL - Imaging Abdominal x-ray: report reviewed, image reviewed CT scan - abdomen: report reviewed, image reviewed CT scan - pelvis: report reviewed, image reviewed Assessment and Plan - Patient Problems (1) Ileus Current Visit: Yes Status: Acute Plan to address problem: Pt stable. Patient appears to have resolved his bowel dysfunction. He had a large bowel movement today. Family reports that he is acting back to normal and asking for food. I do not find anything concerning on exam. No need for surgical intervention at this time. Rec: 1) clamp NGT. Remove in AM if he does well with clears and films are improving. 2) clear liquid diet 3) Films in AM Discussed with father and nurse. All are in agreement with the plan. Time=30min
[2019-03-03] MEDS ORDERED: ATIVAN IV PRN (16:04)
[2019-03-03] MEDS: NACL 0.9% 1000 ML 1,000 ML IV SCH (20:05)
--- NOTE | 2019-03-04 00:11 | XRay Report ---
ABDOMEN 1 VIEW(S) 03/03/2019 11:51 PM INDICATION / CLINICAL INFORMATION: verification of NGT placement. COMPARISON: None available. FINDINGS: The tip of an esophagogastric tube projects over the second portion of duodenum. Moderate gaseous dis tention of small bowel characteristic for patient's known distal small bowel obstruction. Signer Name: Connor Martinez MD Signed: 03/04/2019 12:06 AM Workstation Name: [email or web address]
[2019-03-04] MEDS: NACL 0.9% 1000 ML 1,000 ML IV SCH ×2 (05:25→14:50)
--- NOTE | 2019-03-04 08:46 | XRay Report ---
ABDOMEN ONE VIEW INDICATION / CLINICAL INFORMATION: reassess ileus. COMPARISON: 03/03/2019 FINDINGS: Nasogastric tube remains in place. Once again distention of both small and large bowel is seen simila r appearance to yesterday. Overall no significant interval change. Signer Name: Kyle Theodore MD FACR Signed: 03/04/2019 8:42 AM Workstation Name: [id number]
--- NOTE | 2019-03-04 12:43 | Progress Note ---
Assessment and Plan - Patient Problems (1) Dehydration Current Visit: Yes Status: Acute Plan to address problem: Secondary to prerenal azotemia. Patient is not eating drinking secondary to ileus. Now eating having bowel movements without any difficulty. Plan discharge in a.m. If he tolerates by mouth. (2) Ileus Current Visit: Yes Status: Acute Plan to address problem: A shunt appears to have ileus. Now no evidence of small bowel obstruction. Patient tolerating by mouth well. No abdominal pain. Bowel sounds have returned. KUB results noted distention large and small bowel. No changes. Continue injury to for now. The patient tolerates meals well discharged home in a.m. With a adequate bowel regime (3) Small bowel obstruction Current Visit: Yes Status: Acute Plan to address problem: Without obstruction. History Interval history: Patient this morning much more alert. Had 2 large bowel movement was yesterday and another today. Appears to be tolerating meals well. Patient still has NG tube in. Presently tolerating much now. No abdominal pain no rebound or guarding. Hospitalist Physical - Constitutional Vitals: Temp Pulse Resp BP Pulse Ox 98.5 F 92 H 20 130/83 97 03/04/19 05:38 03/04/19 05:38 03/04/19 05:38 03/04/19 05:38 03/04/19 05:38 General appearance: Present: no acute distress - EENT Eyes: Present: PERRL, EOM intact ENT: hearing intact, clear oral mucosa, dentition normal - Neck Neck: Present: supple, normal ROM - Respiratory Respiratory: bilateral: CTA - Cardiovascular Rhythm: regular - Extremities Extremities: no ischemia, pulses intact, pulses symmetrical, No edema, normal temperature Peripheral Pulses: within normal limits - Abdominal General gastrointestinal: soft, non-tender, distended, hypoactive bowel sounds - Integumentary Integumentary: Present: clear, warm, dry - Psychiatric Psychiatric: appropriate mood/affect - Neurologic Neurologic: focal deficits Results - Labs CBC & Chem 7: 03/03/19 03:57 03/03/19 03:57 Labs: Laboratory Last Values WBC 6.0 K/mm3 (4.5-11.0) 03/03/19 03:57 RBC 4.26 M/mm3 (3.65-5.03) 03/03/19 03:57 Hgb 12.8 gm/dl (11.8-15.2) 03/03/19 03:57 Hct 39.1 % (35.5-45.6) D 03/03/19 03:57 MCV 92 fl (84-94) 03/03/19 03:57 MCH 30 pg (28-32) 03/03/19 03:57 MCHC 33 % (32-34) 03/03/19 03:57 RDW 13.5 % (13.2-15.2) 03/03/19 03:57 Plt Count 253 K/mm3 (140-440) 03/03/19 03:57 Lymph % (Auto) 14.5 % (13.4-35.0) 03/02/19 13:28 [place] % (Auto) 9.0 % (0.0-7.3) H 03/02/19 13:28 Eos % (Auto) 0.0 % (0.0-4.3) 03/02/19 13:28 Baso % (Auto) 0.5 % (0.0-1.8) 03/02/19 13:28 Lymph # 1.2 K/mm3 (1.2-5.4) 03/02/19 13:28 [place] # 0.8 K/mm3 (0.0-0.8) 03/02/19 13:28 Eos # 0.0 K/mm3 (0.0-0.4) 03/02/19 13:28 Baso # 0.0 K/mm3 (0.0-0.1) 03/02/19 13:28 Add Manual Diff Complete 03/03/19 03:57 Total Counted 100 03/03/19 03:57 Seg Neutrophils % 76.0 % (40.0-70.0) H 03/02/19 13:28 Seg Neuts % (Manual) 70.0 % (40.0-70.0) 03/03/19 03:57 0 % 03/03/19 03:57 20.0 % (13.4-35.0) 03/03/19 03:57 Reactive Lymphs % (Man) 5.0 % 03/03/19 03:57 4.0 % (0.0-7.3) 03/03/19 03:57 0 % (0.0-4.3) 03/03/19 03:57 0 % (0.0-1.8) 03/03/19 03:57 1.0 % 03/03/19 03:57 0 % 03/03/19 03:57 0 % 03/03/19 03:57 0 % 03/03/19 03:57 Nucleated RBC % Not Reportable 03/03/19 03:57 Seg Neutrophils # 6.4 K/mm3 (1.8-7.7) 03/02/19 13:28 Seg Neutrophils # Man 4.2 K/mm3 (1.8-7.7) 03/03/19 03:57 Band Neutrophils # 0.0 K/mm3 03/03/19 03:57 1.2 K/mm3 (1.2-5.4) 03/03/19 03:57 Abs React Lymphs (Man) 0.3 K/mm3 03/03/19 03:57 0.2 K/mm3 (0.0-0.8) 03/03/19 03:57 0.0 K/mm3 (0.0-0.4) 03/03/19 03:57 0.0 K/mm3 (0.0-0.1) 03/03/19 03:57 0.1 K/mm3 03/03/19 03:57 0.0 K/mm3 03/03/19 03:57 0.0 K/mm3 03/03/19 03:57 Blast Cells # 0.0 K/mm3 03/03/19 03:57 WBC Morphology Not Reportable 03/03/19 03:57 Hypersegmented Neuts Not Reportable 03/03/19 03:57 Hyposegmented Neuts Not Reportable 03/03/19 03:57 Hypogranular Neuts Not Reportable 03/03/19 03:57 Not Reportable 03/03/19 03:57 Not Reportable 03/03/19 03:57 Not Reportable 03/03/19 03:57 Not Reportable 03/03/19 03:57 Not Reportable 03/03/19 03:57 Not Reportable 03/03/19 03:57 Consistent w auto 03/03/19 03:57 Not Reportable 03/03/19 03:57 Plt Clumps, EDTA Not Reportable 03/03/19 03:57 Not Reportable 03/03/19 03:57 Not Reportable 03/03/19 03:57 Not Reportable 03/03/19 03:57 Plt Morphology Comment Not Reportable 03/03/19 03:57 RBC Morphology Normal 03/03/19 03:57 Dimorphic RBCs Not Reportable 03/03/19 03:57 Not Reportable 03/03/19 03:57 Not Reportable 03/03/19 03:57 Not Reportable 03/03/19 03:57 Not Reportable 03/03/19 03:57 Not Reportable 03/03/19 03:57 Not Reportable 03/03/19 03:57 Not Reportable 03/03/19 03:57 Not Reportable 03/03/19 03:57 Not Reportable 03/03/19 03:57 Not Reportable 03/03/19 03:57 Not Reportable 03/03/19 03:57 Not Reportable 03/03/19 03:57 Not Reportable 03/03/19 03:57 Not Reportable 03/03/19 03:57 Not Reportable 03/03/19 03:57 Not Reportable 03/03/19 03:57 Not Reportable 03/03/19 03:57 Not Reportable 03/03/19 03:57 Not Reportable 03/03/19 03:57 Acanthocytes (Spur) Not Reportable 03/03/19 03:57 Rouleaux Not Reportable 03/03/19 03:57 Not Reportable 03/03/19 03:57 Not Reportable 03/03/19 03:57 Not Reportable 03/03/19 03:57 Not Reportable 03/03/19 03:57 Hem Pathologist Commnt No 03/03/19 03:57 Sodium 140 mmol/L (137-145) 03/03/19 03:57 Potassium 4.3 mmol/L (3.6-5.0) 03/03/19 03:57 Chloride 107.1 mmol/L (98-107) H 03/03/19 03:57 Carbon Dioxide 21 mmol/L (22-30) L 03/03/19 03:57 16 mmol/L 03/03/19 03:57 BUN 18 mg/dL (9-20) 03/03/19 03:57 1.0 mg/dL (0.8-1.5) 03/03/19 03:57 Estimated GFR > 60 ml/min 03/03/19 03:57 18 % 03/03/19 03:57 Glucose 93 mg/dL (75-100) 03/03/19 03:57 Calcium 8.4 mg/dL (8.4-10.2) 03/03/19 03:57 0.30 mg/dL (0.1-1.2) 03/02/19 13:28 AST 15 units/L (5-40) 03/02/19 13:28 ALT 22 units/L (7-56) 03/02/19 13:28 76 units/L (35-129) 03/02/19 13:28 8.5 g/dL (6.3-8.2) H 03/02/19 13:28 4.3 g/dL (3.9-5) 03/02/19 13:28 1.0 % 03/02/19 13:28 26 units/L (13-60) 03/02/19 13:28 Regine (Yellow) 03/02/19 Unknown Slightly-cloudy (Clear) 03/02/19 Unknown 5.0 (5.0-7.0) 03/02/19 Unknown Ur Specific [place] 1.032 (1.003-1.030) H 03/02/19 Unknown 30 mg/dl mg/dL (Negative) 03/02/19 Unknown Neg mg/dL (Negative) 03/02/19 Unknown Tr mg/dL (Negative) 03/02/19 Unknown Neg (Negative) 03/02/19 Unknown Neg (Negative) 03/02/19 Unknown Sm (Negative) 03/02/19 Unknown Negative (Negative) 03/02/19 Unknown 4.0 mg/dL (<2.0) 03/02/19 Unknown Ur Leukocyte Esterase Neg (Negative) 03/02/19 Unknown 4.0 /HPF (0.0-6.0) 03/02/19 Unknown 3.0 /HPF (0.0-6.0) 03/02/19 Unknown U Epithel Cells (Auto) < 1.0 /HPF (0-13.0) 03/02/19 Unknown 1+ /HPF (Negative) 03/02/19 Unknown Hyaline Casts 8 /LPF 03/02/19 Unknown 3+ /HPF 03/02/19 Unknown - Imaging and Cardiology Chest x-ray: report reviewed Abdominal x-ray: report reviewed CT scan - abdomen: report reviewed Active Medications - Current Medications Current Medications: Generic Name Dose Route Start Last Admin Trade Name Freq PRN Reason Stop Dose Admin Acetaminophen 650 mg 03/02/19 19:32 Tylenol PO Q4H PRN Pain MILD(1-3)/Fever >100.5/MENA Sodium Chloride 1,000 mls @ 100 mls/hr 03/02/19 20:00 03/04/19 05:25 Nacl 0.9% 1000 Ml IV 100 mls/hr DIRECT ANTOINE Administration Lorazepam 2 mg 03/03/19 16:04 Ativan IV Q4H PRN Agitation Morphine Sulfate 2 mg 03/02/19 19:32 Morphine IV Q4H PRN Pain, Moderate (4-6) Ondansetron HCl 4 mg 03/02/19 19:32 Zofran IV Q8H PRN Nausea And Vomiting Sodium Chloride 10 ml 03/02/19 22:00 03/03/19 22:32 Sodium Chloride Flush Syringe 10 Ml IV 10 ml BID ANTOINE Administration Sodium Chloride 10 ml 03/02/19 19:32 Sodium Chloride Flush Syringe 10 Ml IV PRN PRN LINE FLUSH
[2019-03-04] MEDS: SODIUM CHLORIDE FLUSH SYRINGE 10 ML IV SCH ×2 (13:24→23:12)
[2019-03-04 15:37] LABS: BUN/Creatinine Ratio 7; Blood Urea Nitrogen 6 mg/dL (9-20); Calcium 8.6 mg/dL (8.4-10.2); Hemolysis Index 2
--- NOTE | 2019-03-04 15:48 | Progress Note ---
Assessment and Plan (1) Ileus Current Visit: Yes Status: Acute Plan to address problem: Pt stable and continuing to improve. Abd xray today unchanged and demonstrating dilated large and small bowel loops. This is related to ileus. He continues to have bowel movements. Rec: 1) clamp NGT. Will continue NGT as it was very difficult to place initially and no significant improvement in imaging. If patient remains clinically stable in am, will remove NGT. 2) c/w clear liquid diet Discussed with father at bedside. Subjective Date of service: 03/04/19 Narrative: Pt seen and examined. No acute complaints. Father at bedside. Patient tried to remove NGT overnight. It has been clamped and he is not having any n/v. Tolerating clear liquids. He has had multiple large BMs since yesterday. Objective Vital Signs - 12hr 03/04/19 03/04/19 05:38 12:28 Temperature 98.5 F 99.3 F Pulse Rate 92 H Respiratory 20 20 Rate Blood Pressure 130/83 119/62 O2 Sat by Pulse 97 Oximetry - General physical appearance Narrative Exam: Gen: Awake and alert. NAD ENT: NGT clamped CV; s1, S2+ Resp: even and unlabored Abd: soft, NT, ND Ext: no c/c/e - Labs 03/03/19 03:57 03/04/19 14:48 Diabetes panel 03/04/19 Range/Units 14:48 Sodium 142 (137-145) mmol/L Potassium 4.0 (3.6-5.0) mmol/L Chloride 108.0 H (98-107) mmol/L Carbon Dioxide 24 (22-30) mmol/L BUN 6 L (9-20) mg/dL Creatinine 0.9 (0.8-1.5) mg/dL Glucose 102 H (75-100) mg/dL Calcium 8.6 (8.4-10.2) mg/dL Calcium panel 03/04/19 Range/Units 14:48 Calcium 8.6 (8.4-10.2) mg/dL Pituitary panel 03/04/19 Range/Units 14:48 Sodium 142 (137-145) mmol/L Potassium 4.0 (3.6-5.0) mmol/L Chloride 108.0 H (98-107) mmol/L Carbon Dioxide 24 (22-30) mmol/L BUN 6 L (9-20) mg/dL Creatinine 0.9 (0.8-1.5) mg/dL Glucose 102 H (75-100) mg/dL Calcium 8.6 (8.4-10.2) mg/dL Adrenal panel 03/04/19 Range/Units 14:48 Sodium 142 (137-145) mmol/L Potassium 4.0 (3.6-5.0) mmol/L Chloride 108.0 H (98-107) mmol/L Carbon Dioxide 24 (22-30) mmol/L BUN 6 L (9-20) mg/dL Creatinine 0.9 (0.8-1.5) mg/dL Glucose 102 H (75-100) mg/dL Calcium 8.6 (8.4-10.2) mg/dL
[2019-03-04] MEDS ORDERED: ROBITUSSIN PO PRN (17:00)
[2019-03-04] MEDS: D5/0.45NS 1,000 ML IV SCH (17:56)
[2019-03-05] MEDS: D5/0.45NS 1,000 ML IV SCH ×3 (02:46→11:42)
[2019-03-05] MEDS: NACL 0.9% 1000 ML 1,000 ML IV SCH (02:51)
[2019-03-05] MEDS: SODIUM CHLORIDE FLUSH SYRINGE 10 ML IV SCH (10:20)
--- NOTE | 2019-03-05 10:26 | XRay Report ---
Abdomen 2 views INDICATION: Abdominal pain IMPRESSION: Adynamic ileus is not significantly improved from yesterday's exam. Signer Name: Pancho Jurado MD Signed: 03/05/2019 10:22 AM Workstation Name: [email or web address]
--- NOTE | 2019-03-05 11:40 | Progress Note ---
Assessment and Plan (1) Ileus Current Visit: Yes Status: Acute Plan to address problem: Pt stable and continuing to improve. He continues to have bowel movements. NGT has been clamped x 48 hours and patient has not had n/v, abd pain, and has been tolerating diet. Abd xray today unchanged and demonstrating dilated large and small bowel loops. This is related to ileus. Pt has been restrained for the last 2 days due to pulling on NGT and it was necessary that NGT stay in. At this point, I feel that the NGT may be removed so patient can ambulate and get OOB. Rec: 1) dc NGT 2) adv to full liquids and keep patient on full liquid diet for 3-4 days in the hospital and upon discharge. Then may be advanced to soft diet. 3) ambulate 4) dc IVF 5) bowel regimen prn 6) recommend SBFT but may be done as outpatient. May follow up in surgery clinic as outpatient. Discussed with family at bedside and patient's RN. Thank you, please call with questions. Objective Vital Signs - 12hr 03/05/19 05:44 Temperature 98.4 F Respiratory 16 Rate Blood Pressure 131/79 - General physical appearance Narrative Exam: Gen; Awake and alert, NAD ENt; NGT clamped - removed CV; s1, S2+ Resp; even and unlabored Abd: soft, NT, ND Ext: no c/c/e - Labs 03/03/19 03:57 03/04/19 14:48 Diabetes panel 03/04/19 Range/Units 14:48 Sodium 142 (137-145) mmol/L Potassium 4.0 (3.6-5.0) mmol/L Chloride 108.0 H (98-107) mmol/L Carbon Dioxide 24 (22-30) mmol/L BUN 6 L (9-20) mg/dL Creatinine 0.9 (0.8-1.5) mg/dL Glucose 102 H (75-100) mg/dL Calcium 8.6 (8.4-10.2) mg/dL Calcium panel 03/04/19 Range/Units 14:48 Calcium 8.6 (8.4-10.2) mg/dL Pituitary panel 03/04/19 Range/Units 14:48 Sodium 142 (137-145) mmol/L Potassium 4.0 (3.6-5.0) mmol/L Chloride 108.0 H (98-107) mmol/L Carbon Dioxide 24 (22-30) mmol/L BUN 6 L (9-20) mg/dL Creatinine 0.9 (0.8-1.5) mg/dL Glucose 102 H (75-100) mg/dL Calcium 8.6 (8.4-10.2) mg/dL Adrenal panel 03/04/19 Range/Units 14:48 Sodium 142 (137-145) mmol/L Potassium 4.0 (3.6-5.0) mmol/L Chloride 108.0 H (98-107) mmol/L Carbon Dioxide 24 (22-30) mmol/L BUN 6 L (9-20) mg/dL Creatinine 0.9 (0.8-1.5) mg/dL Glucose 102 H (75-100) mg/dL Calcium 8.6 (8.4-10.2) mg/dL
[2019-03-05] MEDS ORDERED: COLACE PO PRN (11:43)
--- NOTE | 2019-03-05 16:17 | Progress Note ---
Assessment and Plan - Patient Problems (1) Dehydration Current Visit: Yes Status: Acute Plan to address problem: Resolved secondary to prerenal azotemia. Patient not eating drinking without difficulty. (2) Ileus Current Visit: Yes Status: Acute Plan to address problem: Patient eating drinking bowel. Obtained another abdominal x-ray today still show dilated small bowel and large bowel consistent with ileus. Since patient is doing so well tolerating by mouth having bowel movement will remove NG tube patient up and walking if this works will provide tentative discharge. I spoke to family about bowel regiment in the personal intermediate. (3) Small bowel obstruction Current Visit: Yes Status: Resolved History Interval history: Patient today much improved more alert. Had bowel movement yesterday and today. No nausea vomiting. Hospitalist Physical - Constitutional Vitals: Temp Pulse Resp BP Pulse Ox 98.4 F 100 H 16 131/79 92 03/05/19 05:44 03/04/19 22:46 03/05/19 05:44 03/05/19 05:44 03/04/19 22:46 General appearance: Present: no acute distress - EENT Eyes: Present: PERRL, EOM intact ENT: hearing intact, clear oral mucosa, dentition normal, no poor dentition, no thrush - Neck Neck: Present: supple, normal ROM. Absent: enlarged thyroid, masses or JVD - Respiratory Respiratory effort: normal Respiratory: bilateral: CTA - Cardiovascular Rhythm: regular - Extremities Extremities: no ischemia, pulses intact, pulses symmetrical, No edema, normal temperature Peripheral Pulses: within normal limits - Abdominal General gastrointestinal: soft, non-tender, distended, normal bowel sounds - Integumentary Integumentary: Present: clear, warm, dry - Psychiatric Psychiatric: appropriate mood/affect - Neurologic Neurologic: moves all extremities Results - Labs CBC & Chem 7: 03/03/19 03:57 03/04/19 14:48 Labs: Laboratory Last Values WBC 6.0 K/mm3 (4.5-11.0) 03/03/19 03:57 RBC 4.26 M/mm3 (3.65-5.03) 03/03/19 03:57 Hgb 12.8 gm/dl (11.8-15.2) 03/03/19 03:57 Hct 39.1 % (35.5-45.6) D 03/03/19 03:57 MCV 92 fl (84-94) 03/03/19 03:57 MCH 30 pg (28-32) 03/03/19 03:57 MCHC 33 % (32-34) 03/03/19 03:57 RDW 13.5 % (13.2-15.2) 03/03/19 03:57 Plt Count 253 K/mm3 (140-440) 03/03/19 03:57 Lymph % (Auto) 14.5 % (13.4-35.0) 03/02/19 13:28 [place] % (Auto) 9.0 % (0.0-7.3) H 03/02/19 13:28 Eos % (Auto) 0.0 % (0.0-4.3) 03/02/19 13:28 Baso % (Auto) 0.5 % (0.0-1.8) 03/02/19 13:28 Lymph # 1.2 K/mm3 (1.2-5.4) 03/02/19 13:28 [place] # 0.8 K/mm3 (0.0-0.8) 03/02/19 13:28 Eos # 0.0 K/mm3 (0.0-0.4) 03/02/19 13:28 Baso # 0.0 K/mm3 (0.0-0.1) 03/02/19 13:28 Add Manual Diff Complete 03/03/19 03:57 Total Counted 100 03/03/19 03:57 Seg Neutrophils % 76.0 % (40.0-70.0) H 03/02/19 13:28 Seg Neuts % (Manual) 70.0 % (40.0-70.0) 03/03/19 03:57 0 % 03/03/19 03:57 20.0 % (13.4-35.0) 03/03/19 03:57 Reactive Lymphs % (Man) 5.0 % 03/03/19 03:57 4.0 % (0.0-7.3) 03/03/19 03:57 0 % (0.0-4.3) 03/03/19 03:57 0 % (0.0-1.8) 03/03/19 03:57 1.0 % 03/03/19 03:57 0 % 03/03/19 03:57 0 % 03/03/19 03:57 0 % 03/03/19 03:57 Nucleated RBC % Not Reportable 03/03/19 03:57 Seg Neutrophils # 6.4 K/mm3 (1.8-7.7) 03/02/19 13:28 Seg Neutrophils # Man 4.2 K/mm3 (1.8-7.7) 03/03/19 03:57 Band Neutrophils # 0.0 K/mm3 03/03/19 03:57 1.2 K/mm3 (1.2-5.4) 03/03/19 03:57 Abs React Lymphs (Man) 0.3 K/mm3 03/03/19 03:57 0.2 K/mm3 (0.0-0.8) 03/03/19 03:57 0.0 K/mm3 (0.0-0.4) 03/03/19 03:57 0.0 K/mm3 (0.0-0.1) 03/03/19 03:57 0.1 K/mm3 03/03/19 03:57 0.0 K/mm3 03/03/19 03:57 0.0 K/mm3 03/03/19 03:57 Blast Cells # 0.0 K/mm3 03/03/19 03:57 WBC Morphology Not Reportable 03/03/19 03:57 Hypersegmented Neuts Not Reportable 03/03/19 03:57 Hyposegmented Neuts Not Reportable 03/03/19 03:57 Hypogranular Neuts Not Reportable 03/03/19 03:57 Not Reportable 03/03/19 03:57 Not Reportable 03/03/19 03:57 Not Reportable 03/03/19 03:57 Not Reportable 03/03/19 03:57 Not Reportable 03/03/19 03:57 Not Reportable 03/03/19 03:57 Consistent w auto 03/03/19 03:57 Not Reportable 03/03/19 03:57 Plt Clumps, EDTA Not Reportable 03/03/19 03:57 Not Reportable 03/03/19 03:57 Not Reportable 03/03/19 03:57 Not Reportable 03/03/19 03:57 Plt Morphology Comment Not Reportable 03/03/19 03:57 RBC Morphology Normal 03/03/19 03:57 Dimorphic RBCs Not Reportable 03/03/19 03:57 Not Reportable 03/03/19 03:57 Not Reportable 03/03/19 03:57 Not Reportable 03/03/19 03:57 Not Reportable 03/03/19 03:57 Not Reportable 03/03/19 03:57 Not Reportable 03/03/19 03:57 Not Reportable 03/03/19 03:57 Not Reportable 03/03/19 03:57 Not Reportable 03/03/19 03:57 Not Reportable 03/03/19 03:57 Not Reportable 03/03/19 03:57 Not Reportable 03/03/19 03:57 Not Reportable 03/03/19 03:57 Not Reportable 03/03/19 03:57 Not Reportable 03/03/19 03:57 Not Reportable 03/03/19 03:57 Not Reportable 03/03/19 03:57 Not Reportable 03/03/19 03:57 Not Reportable 03/03/19 03:57 Acanthocytes (Spur) Not Reportable 03/03/19 03:57 Rouleaux Not Reportable 03/03/19 03:57 Not Reportable 03/03/19 03:57 Not Reportable 03/03/19 03:57 Not Reportable 03/03/19 03:57 Not Reportable 03/03/19 03:57 Hem Pathologist Commnt No 03/03/19 03:57 Sodium 142 mmol/L (137-145) 03/04/19 14:48 Potassium 4.0 mmol/L (3.6-5.0) 03/04/19 14:48 Chloride 108.0 mmol/L (98-107) H 03/04/19 14:48 Carbon Dioxide 24 mmol/L (22-30) 03/04/19 14:48 14 mmol/L 03/04/19 14:48 BUN 6 mg/dL (9-20) L 03/04/19 14:48 0.9 mg/dL (0.8-1.5) 03/04/19 14:48 Estimated GFR > 60 ml/min 03/04/19 14:48 7 % 03/04/19 14:48 Glucose 102 mg/dL (75-100) H 03/04/19 14:48 Calcium 8.6 mg/dL (8.4-10.2) 03/04/19 14:48 0.30 mg/dL (0.1-1.2) 03/02/19 13:28 AST 15 units/L (5-40) 03/02/19 13:28 ALT 22 units/L (7-56) 03/02/19 13:28 76 units/L (35-129) 03/02/19 13:28 8.5 g/dL (6.3-8.2) H 03/02/19 13:28 4.3 g/dL (3.9-5) 03/02/19 13:28 1.0 % 03/02/19 13:28 26 units/L (13-60) 03/02/19 13:28 [place] (Yellow) 03/02/19 Unknown Slightly-cloudy (Clear) 03/02/19 Unknown 5.0 (5.0-7.0) 03/02/19 Unknown Ur Specific [place] 1.032 (1.003-1.030) H 03/02/19 Unknown 30 mg/dl mg/dL (Negative) 03/02/19 Unknown Neg mg/dL (Negative) 03/02/19 Unknown Tr mg/dL (Negative) 03/02/19 Unknown Neg (Negative) 03/02/19 Unknown Neg (Negative) 03/02/19 Unknown Sm (Negative) 03/02/19 Unknown Negative (Negative) 03/02/19 Unknown 4.0 mg/dL (<2.0) 03/02/19 Unknown Ur Leukocyte Esterase Neg (Negative) 03/02/19 Unknown 4.0 /HPF (0.0-6.0) 03/02/19 Unknown 3.0 /HPF (0.0-6.0) 03/02/19 Unknown U Epithel Cells (Auto) < 1.0 /HPF (0-13.0) 03/02/19 Unknown 1+ /HPF (Negative) 03/02/19 Unknown Hyaline Casts 8 /LPF 03/02/19 Unknown 3+ /HPF 03/02/19 Unknown - Imaging and Cardiology Abdominal x-ray: report reviewed, image reviewed Active Medications - Current Medications Current Medications: Generic Name Dose Route Start Last Admin Trade Name Freq PRN Reason Stop Dose Admin Acetaminophen 650 mg 03/02/19 19:32 Tylenol PO Q4H PRN Pain MILD(1-3)/Fever >100.5/MENA Docusate Sodium 100 mg 03/05/19 11:43 Colace PO BID PRN Constipation Guaifenesin 200 mg 03/04/19 17:00 03/04/19 17:57 Robitussin PO 200 mg Q4H PRN Administration Cough Lorazepam 2 mg 03/03/19 16:04 Ativan IV Q4H PRN Agitation Ondansetron HCl 4 mg 03/02/19 19:32 Zofran IV Q8H PRN Nausea And Vomiting Sodium Chloride 10 ml 03/02/19 22:00 03/05/19 10:20 Sodium Chloride Flush Syringe 10 Ml IV Not Given BID ANTOINE Sodium Chloride 10 ml 03/02/19 19:32 Sodium Chloride Flush Syringe 10 Ml IV PRN PRN LINE FLUSH
[2019-03-06] MEDS: SODIUM CHLORIDE FLUSH SYRINGE 10 ML IV SCH ×3 (06:23→22:16)
--- NOTE | 2019-03-06 11:46 | Progress Note ---
Assessment and Plan (1) Ileus Current Visit: Yes Status: Acute Plan to address problem: Pt stable. Tolerating diet. Abdomen benign Rec: 1) c/w full liquid diet for another 2-3 days. Then advance to soft diet, 5-6 small meals a day. 2) ambulate 3) bowel regimen prn 4) follow up with Dr. Chavis in surgery clinic as outpatient in 1-2 weeks. OK to discharge from surgery standpoint. Discussed with family at bedside and Dr. Zavala. Thank you, please call with qu estions. Subjective Date of service: 03/06/19 Narrative: Pt seen and examined. No acute complaints. No n/v. Tolerating diet without difficulty. Objective Vital Signs - 12hr 03/06/19 05:10 Temperature 98.3 F Pulse Rate 75 Respiratory 20 Rate Blood Pressure 90/34 O2 Sat by Pulse 96 Oximetry - General physical appearance Narrative Exam: Gen: Sleeping comfortably. NAD CV: s1, S2+ resp; even and unlabored Abd: soft, NT, ND Ext: no c/c/e - Labs 03/03/19 03:57 03/04/19 14:48
--- NOTE | 2019-03-06 12:23 | Progress Note ---
Assessment and Plan Assessment and plan: Patient is a 33-year-old -[place] man from intermediate with history of moderate intellectual delay, autism who presents to [facility] ED with c/o abdominal pain and distention, and decreased oral intake for the past day. Pt is unable to provide his due to his intellectual delay. His father is present at bedside and has assisted with providing history. Pt's father states that pt was hospitalized last week at [facility] for small bowel obstruction. He was treated conservatively with bowel rest and decompress via NGT. Pt has no history of abdominal surgeries. Father also states that pt has had poor oral intake for the past day. There are no reports of constipation, nausea, vomiting, or diarr hea. CT Abd/Pelvis IMPRESSION: 1. Distal small bowel obstruction. Small Bowel obstruction -resolved, on clear liquids -ok to d/c per GS New low grade fevers, 100.9F last night and 100.0F so far today -get blood cultures -consult ID -follow up 2v cxr, empiric treat for pneumonia with iv rocephin, iv azithromycin. Autism -supportive care -mitten prn -Father Omari at bedside dispo: continue inpatient, fevers last night stopped the discharge today, w/u in progress History Interval history: Patient was seen and examined. Follow-up on current diagnosis of SBO. No overnight events reported to me, but pt given IV ativan for anxiety and agitation, now snoring. Imaging, nursing note, chart, labs and old chart reviewed. Discussed with father at bedside, Mr. Omari Stanley. Hospitalist Physical - Physical exam Narrative exam: Gen: WDWN, obese, NAD, awake HEENT: NCAT, EOMI, PERRL, OP Clear Neck: supple, no adenopathy, no thyromegaly, no JVD CVS/Heart: Reg tachy, normal S1S2, pulses present bilaterally Chest/Lungs: CTA B, Symmetrical chest expansion, good air entry bilaterally GI/Abdomen: soft, ntnd, good bowel sounds, no guarding or rebound /Bladder: no suprapubic tenderness, no CVA or paraspinal tenderness Extermity/Skin: no c/c/e, no obvious rash MSK: doesn't follow commands Neuro: CN 2-12 grossly intact, doesn't follow commands Psych: calm - Constitutional Vitals: Temp Pulse Resp BP Pulse Ox 98.3 F 75 20 90/34 96 03/06/19 05:10 03/06/19 05:10 03/06/19 05:10 03/06/19 05:10 03/06/19 05:10 General appearance: Present: no acute distress Results - Labs CBC & Chem 7: 03/03/19 03:57 03/04/19 14:48 Labs: Laboratory Last Values WBC 6.0 K/mm3 (4.5-11.0) 03/03/19 03:57 RBC 4.26 M/mm3 (3.65-5.03) 03/03/19 03:57 Hgb 12.8 gm/dl (11.8-15.2) 03/03/19 03:57 Hct 39.1 % (35.5-45.6) D 03/03/19 03:57 MCV 92 fl (84-94) 03/03/19 03:57 MCH 30 pg (28-32) 03/03/19 03:57 MCHC 33 % (32-34) 03/03/19 03:57 RDW 13.5 % (13.2-15.2) 03/03/19 03:57 Plt Count 253 K/mm3 (140-440) 03/03/19 03:57 Lymph % (Auto) 14.5 % (13.4-35.0) 03/02/19 13:28 [place] % (Auto) 9.0 % (0.0-7.3) H 03/02/19 13:28 Eos % (Auto) 0.0 % (0.0-4.3) 03/02/19 13:28 Baso % (Auto) 0.5 % (0.0-1.8) 03/02/19 13:28 Lymph # 1.2 K/mm3 (1.2-5.4) 03/02/19 13:28 [place] # 0.8 K/mm3 (0.0-0.8) 03/02/19 13:28 Eos # 0.0 K/mm3 (0.0-0.4) 03/02/19 13:28 Baso # 0.0 K/mm3 (0.0-0.1) 03/02/19 13:28 Add Manual Diff Complete 03/03/19 03:57 Total Counted 100 03/03/19 03:57 Seg Neutrophils % 76.0 % (40.0-70.0) H 03/02/19 13:28 Seg Neuts % (Manual) 70.0 % (40.0-70.0) 03/03/19 03:57 0 % 03/03/19 03:57 20.0 % (13.4-35.0) 03/03/19 03:57 Reactive Lymphs % (Man) 5.0 % 03/03/19 03:57 4.0 % (0.0-7.3) 03/03/19 03:57 0 % (0.0-4.3) 03/03/19 03:57 0 % (0.0-1.8) 03/03/19 03:57 1.0 % 03/03/19 03:57 0 % 03/03/19 03:57 0 % 03/03/19 03:57 0 % 03/03/19 03:57 Nucleated RBC % Not Reportable 03/03/19 03:57 Seg Neutrophils # 6.4 K/mm3 (1.8-7.7) 03/02/19 13:28 Seg Neutrophils # Man 4.2 K/mm3 (1.8-7.7) 03/03/19 03:57 Band Neutrophils # 0.0 K/mm3 03/03/19 03:57 1.2 K/mm3 (1.2-5.4) 03/03/19 03:57 Abs React Lymphs (Man) 0.3 K/mm3 03/03/19 03:57 0.2 K/mm3 (0.0-0.8) 03/03/19 03:57 0.0 K/mm3 (0.0-0.4) 03/03/19 03:57 0.0 K/mm3 (0.0-0.1) 03/03/19 03:57 0.1 K/mm3 03/03/19 03:57 0.0 K/mm3 03/03/19 03:57 0.0 K/mm3 03/03/19 03:57 Blast Cells # 0.0 K/mm3 03/03/19 03:57 WBC Morphology Not Reportable 03/03/19 03:57 Hypersegmented Neuts Not Reportable 03/03/19 03:57 Hyposegmented Neuts Not Reportable 03/03/19 03:57 Hypogranular Neuts Not Reportable 03/03/19 03:57 Not Reportable 03/03/19 03:57 Not Reportable 03/03/19 03:57 Not Reportable 03/03/19 03:57 Not Reportable 03/03/19 03:57 Not Reportable 03/03/19 03:57 Not Reportable 03/03/19 03:57 Consistent w auto 03/03/19 03:57 Not Reportable 03/03/19 03:57 Plt Clumps, EDTA Not Reportable 03/03/19 03:57 Not Reportable 03/03/19 03:57 Not Reportable 03/03/19 03:57 Not Reportable 03/03/19 03:57 Plt Morphology Comment Not Reportable 03/03/19 03:57 RBC Morphology Normal 03/03/19 03:57 Dimorphic RBCs Not Reportable 03/03/19 03:57 Not Reportable 03/03/19 03:57 Not Reportable 03/03/19 03:57 Not Reportable 03/03/19 03:57 Not Reportable 03/03/19 03:57 Not Reportable 03/03/19 03:57 Not Reportable 03/03/19 03:57 Not Reportable 03/03/19 03:57 Not Reportable 03/03/19 03:57 Not Reportable 03/03/19 03:57 Not Reportable 03/03/19 03:57 Not Reportable 03/03/19 03:57 Not Reportable 03/03/19 03:57 Not Reportable 03/03/19 03:57 Not Reportable 03/03/19 03:57 Not Reportable 03/03/19 03:57 Not Reportable 03/03/19 03:57 Not Reportable 03/03/19 03:57 Not Reportable 03/03/19 03:57 Not Reportable 03/03/19 03:57 Acanthocytes (Spur) Not Reportable 03/03/19 03:57 Rouleaux Not Reportable 03/03/19 03:57 Not Reportable 03/03/19 03:57 Not Reportable 03/03/19 03:57 Not Reportable 03/03/19 03:57 Not Reportable 03/03/19 03:57 Hem Pathologist Commnt No 03/03/19 03:57 Sodium 142 mmol/L (137-145) 03/04/19 14:48 Potassium 4.0 mmol/L (3.6-5.0) 03/04/19 14:48 Chloride 108.0 mmol/L (98-107) H 03/04/19 14:48 Carbon Dioxide 24 mmol/L (22-30) 03/04/19 14:48 14 mmol/L 03/04/19 14:48 BUN 6 mg/dL (9-20) L 03/04/19 14:48 0.9 mg/dL (0.8-1.5) 03/04/19 14:48 Estimated GFR > 60 ml/min 03/04/19 14:48 7 % 03/04/19 14:48 Glucose 102 mg/dL (75-100) H 03/04/19 14:48 Calcium 8.6 mg/dL (8.4-10.2) 03/04/19 14:48 0.30 mg/dL (0.1-1.2) 03/02/19 13:28 AST 15 units/L (5-40) 03/02/19 13:28 ALT 22 units/L (7-56) 03/02/19 13:28 76 units/L (35-129) 03/02/19 13:28 8.5 g/dL (6.3-8.2) H 03/02/19 13:28 4.3 g/dL (3.9-5) 03/02/19 13:28 1.0 % 03/02/19 13:28 26 units/L (13-60) 03/02/19 13:28 Regine (Yellow) 03/02/19 Unknown Slightly-cloudy (Clear) 03/02/19 Unknown 5.0 (5.0-7.0) 03/02/19 Unknown Ur Specific [place] 1.032 (1.003-1.030) H 03/02/19 Unknown 30 mg/dl mg/dL (Negative) 03/02/19 Unknown Neg mg/dL (Negative) 03/02/19 Unknown Tr mg/dL (Negative) 03/02/19 Unknown Neg (Negative) 03/02/19 Unknown Neg (Negative) 03/02/19 Unknown Sm (Negative) 03/02/19 Unknown Negative (Negative) 03/02/19 Unknown 4.0 mg/dL (<2.0) 03/02/19 Unknown Ur Leukocyte Esterase Neg (Negative) 03/02/19 Unknown 4.0 /HPF (0.0-6.0) 03/02/19 Unknown 3.0 /HPF (0.0-6.0) 03/02/19 Unknown U Epithel Cells (Auto) < 1.0 /HPF (0-13.0) 03/02/19 Unknown 1+ /HPF (Negative) 03/02/19 Unknown Hyaline Casts 8 /LPF 03/02/19 Unknown 3+ /HPF 03/02/19 Unknown Active Medications - Current Medications Current Medications: Generic Name Dose Route Start Last Admin Trade Name Freq PRN Reason Stop Dose Admin Acetaminophen 650 mg 03/02/19 19:32 Tylenol PO Q4H PRN Pain MILD(1-3)/Fever >100.5/MENA Docusate Sodium 100 mg 03/05/19 11:43 Colace PO BID PRN Constipation Guaifenesin 200 mg 03/04/19 17:00 03/04/19 17:57 Robitussin PO 200 mg Q4H PRN Administration Cough Lorazepam 2 mg 03/03/19 16:04 Ativan IV Q4H PRN Agitation Ondansetron HCl 4 mg 03/02/19 19:32 Zofran IV Q8H PRN Nausea And Vomiting Sodium Chloride 10 ml 03/02/19 22:00 03/06/19 11:55 Sodium Chloride Flush Syringe 10 Ml IV 10 ml BID ANTOINE Administration Sodium Chloride 10 ml 03/02/19 19:32 Sodium Chloride Flush Syringe 10 Ml IV PRN PRN LINE FLUSH
[2019-03-06] MEDS ORDERED: ZITHROMAX 500 MG in NACL 0.9% 250ML 250 ML IV SCH (13:00)
[2019-03-06] MEDS ORDERED: ROCEPHIN/NS 1 GM/50 ML 1 GM/50 ML BAG IV SCH (14:00)
--- NOTE | 2019-03-06 15:22 | XRay Report ---
CHEST 1 VIEW INDICATION / CLINICAL INFORMATION: sob. COMPARISON: None available. FINDINGS: SUPPORT DEVICES: None. HEART / MEDIASTINUM: No significant abnormality. LUNGS / PLEURA: No significant pulmonary or pleural abnormality. No pneumothorax. ADDITIONAL FINDINGS: No significant additional findings. IMPRESSION: No acute pulmonary or pleural abnormality. Signer Name: Kyle Theodore MD FACR Signed: 03/06/2019 3:18 PM Workstation Name: [id number]
[2019-03-06] MEDS ORDERED: NACL 0.9% 500 ML 500 ML IV ONE (18:15)
--- NOTE | 2019-03-06 18:28 | Event Note ---
Date: 03/06/[address] Sherman that patient's family upset that patient will not be discharged today. He explained to them that the patient had a temp of 100.9 yesterday and has been having BPs in 90/50s range all day. He has started w/u and treatment. However, family adamant the patient be discharged as he was stated to be stable to discharge from surgery standpoint. I spoke with patient' sister over the telephone and explained that although the patient's abdomen is improved, he needs further w/u for fever and low BP. I explained that Dr. Sherman as the primary admitting physician makes the final decision about discharge. Sister states that patient has a nurse waiting for him at the assisted and that he is agitated because he thought he was going home. I explained that they can leave but will be against medical advice. She understands. Discussed with Dr. Sherman.
[2019-03-06] MEDS: NACL 0.9% 1000 ML 1,000 ML IV SCH (19:09)
[2019-03-07] MEDS: NACL 0.9% 1000 ML 1,000 ML IV SCH (03:59)
[2019-03-07 05:43] LABS: Hematocrit 37.2 % (35.5-45.6); Hemoglobin 12.2 gm/dl (11.8-15.2); Mean Corpuscular HGB Conc 33 % (32-34); Mean Corpuscular Volume 92 fl (84-94); Platelet Count 290 K/mm3 (140-440); Red Blood Count 4.05 M/mm3 (3.65-5.03); Red Cell Distribution Width 13.7 % (13.2-15.2)
[2019-03-07 05:55] LABS: BUN/Creatinine Ratio 6; Blood Urea Nitrogen 6 mg/dL (9-20); Calcium 8.7 mg/dL (8.4-10.2); Hemolysis Index 0
--- NOTE | 2019-03-07 07:35 | Discharge Summary ---
Providers - Providers Date of Admission: 03/02/19 19:09 Attending physician: ADRIEL SILVEIRA MD 03/02/19 19:06 Consult to Physician [CONS] Urgent Comment: Consulting Provider: DEJA HUNT Physician Instructions: Reason For Exam: sbo 03/05/19 13:54 Physical Therapy Evaluation and Treat [CONS] Routine Comment: Reason For Exam: evaluate ambulation 03/06/19 12:16 Consult to Physician [CONS] Routine Comment: Consulting Provider: SAIMA SWANSON Physician Instructions: Reason For Exam: new fever, evaluate for infection Primary care physician: FOLLOW UP PCP, MD Hospitalization Reason for admission: SBO Condition: Stable Hospital course: Patient is a 33-year-old -[place] man from senior living with history of moderate intellectual delay, autism who presents to [facility] ED with c/o abdominal pain and distention, and decreased oral intake for the past day. Pt is unable to provide his due to his intellectual delay. His father is present at bedside and has assisted with providing history. Pt's father states that pt was hospitalized last week at [facility] for small bowel obstruction. He was treated conservatively with bowel rest and decompress via NGT. Pt has no history of abdominal surgeries. Father also states that pt has had poor oral intake for the past day. There are no reports of constipation, nausea, vomiting, or diarrhea. pt family member demanding patient be discharge because pt is getting agitated and will not get back in bed and they were told they would be discharged today by [facility], father states, "too many damn doctors," when I tried to explain to him the process, pt has low grade temp and now hypotensive. pCXR negative, but I do not know why his bp is lower than normal 90/54. I will give bolus on normal saline. Patient did have significant improvement of his symptoms. He did have a low- grade fever last night cultures workup have remained negative. ID was consulted await their recommendation. Following careful review of patient's prior admission in the ED where his blood pressure was noted to the 108 and appears that the patient runs a low blood pressure on the normal basis. Patient remains asymptomatic at this time review of the in's and out's shows that he did have significant diuresis this could be post ileus diuresis. Patient was given 2 L of fluid and discharged considering that at the senior living nurse and nurse according to the family. CT Abd/Pelvis IMPRESSION: 1. Distal small bowel obstruction. Advised the family that while we'll be discharging the patient suspect that the patient's blood pressure monitor symptoms monitored and if patient shows any symptoms off symptomatic hypotension he should return to the hospital. Small Bowel obstruction -resolved, on clear liquids -ok to d/c per [facility] Bronchitis * Noted cough, non productive. Given augumentin on discharge SIRS without organ dysfunction Fever without sepsis Autism Disposition: DC-01 TO HOME OR SELFCARE Time spent for discharge: 35 mins Core Measure Documentation - Palliative Care Palliative Care/ Comfort Measures: Not Applicable - Core Measures Any of the following diagnoses?: none Exam - Physical Exam Narrative exam: Gen: WDWN, obese, NAD, awake HEENT: NCAT, EOMI, PERRL, OP Clear Neck: supple, no adenopathy, no thyromegaly, no JVD CVS/Heart: Reg tachy, normal S1S2, pulses present bilaterally Chest/Lungs: CTA B, Symmetrical chest expansion, good air entry bilaterally GI/Abdomen: soft, ntnd, good bowel sounds, no guarding or rebound /Bladder: no suprapubic tenderness, no CVA or paraspinal tenderness Extermity/Skin: no c/c/e, no obvious rash MSK: doesn't follow commands Neuro: CN 2-12 grossly intact, doesn't follow commands Psych: calm - Constitutional Vitals: Temp Pulse Resp BP Pulse Ox 97.5 F L 64 20 94/51 100 03/07/19 05:59 03/07/19 05:59 03/07/19 05:59 03/07/19 05:59 03/07/19 05:59 Plan Activity: advance as tolerated, fall precautions Diet: low fat Special Instructions: record daily weights, record daily BP diary Additional Instructions: SPEECH THERAPY OUTPATIENT. PT CAN RETURN TO SCHOOL IN 2 DAYS Care Plan Goals: Patient should be maintained on a full liquid diet for the next 2-3 days. Then he can be advanced to a soft diet with foods such as baked/grilled fish or chicken, eggs, boiled/cooked vegetables, fruit cups. He should receive 5-6 small portions a day. Continue daily bowel regimen consisting of stool softener such as colace 100mg PO daily Dialy BP and if noted lower than 90 systolic, should notify patients doctor Follow up with: PCP,FOLLOW UP, [Primary Care Provider] - 3-5 Days DEJA HUNT MD [Staff Physician] - 7 Days Prescriptions: Amoxicillin/Potassium Clav [Augmentin 875-125 Tablet] 1 each PO BID #14 tablet Docusate Sodium [Colace CAP] 100 mg PO BID PRN #60 capsule PRN Reason: Constipation
[2019-03-07] MEDS ORDERED: NACL 0.9% 1000 ML 2,000 ML IV ONE (08:00)
[2019-03-07] MEDS: SODIUM CHLORIDE FLUSH SYRINGE 10 ML IV SCH (09:39)
[2019-03-07 12:26] VITALS: BP 99/35
== END 2019-03-07 14:03 | disposition home or self-care (01) | DRG 389 ==
LOC: ED 12:19 → 3A 19:09
PROVIDERS: ADMIT Internal Medicine; ATTEND Internal Medicine
PROC: 0DH67UZ Insertion of Feeding Device into Stomach, Via Natural or Artificial Opening (ICD-10-PCS; principal; 2019-03-02)
DX: K56.609 Unspecified intestinal obstruction, unspecified as to partial versus complete obstruction (principal); R65.10 Systemic inflammatory response syndrome (SIRS) of non-infectious origin without acute organ dysfunction; F84.0 Autistic disorder; E86.0 Dehydration; J20.9 Acute bronchitis, unspecified; K56.7 Ileus, unspecified
CPT/HCPCS: 36415; 71045; 74018; 74176; 80048; 80053; 81001; 83690; 85007; 85025; 85027; 87040; 87116; 96361; 96372; 96374; G0378; J0456; J0696; J2060; J3486; J7030; J7050

== ENCOUNTER 2020-06-30 09:19 | Emergency (ER) | payer MEDICARE ==
[2020-06-30] MEDS ORDERED: ETOMIDATE 20 MG/10 ML INJ IV ONE (09:29)
[2020-06-30] MEDS ORDERED: SUCCINYLCHOLINE CHLORIDE 200 MG/10 ML INJ MDV ONE (09:29)
[2020-06-30] MEDS ORDERED: MIDAZOLAM 5 MG/5 ML INJ MDV IV ONE (09:39)
--- NOTE | 2020-06-30 10:06 | Emergency Department Report ---
ED General Adult HPI - General Stated complaint: ROSALIA Time Seen by Provider: 06/30/20 09:21 Source: EMS Limitations: Other (Respiratory distress) - History of Present Illness Initial comments: The patient presents to the ED via EMS from a local [facility] in respiratory distress. Patient O2 sats 81% on room air and at times drops into the high 60s. Per EMS the patient would not allow placement of IV or initiation of oxygen. Patient has past medical history of autism. Patient has audible rales when walking to the room and a complete respiratory distress as mentioned above. Patient is not communicable and not able to add to history -: Sudden Consistency: constant Improves with: none Worsens with: none Treatments Prior to Arrival: none - Related Data Home Medications Medication Instructions Recorded Confirmed Last Taken Benztropine [Cogentin] 0.5 mg PO 03/03/[address] [Depakote Dr] 500 mg PO QHS 03/03/19 03/03/19 Unknown Divalproex Sodium 250 mg PO TID 03/03/19 03/03/19 Unknown FLUoxetine [PROzac] 20 mg PO DAILY 03/03/19 03/03/19 Unknown Miralax 1 tsp PO QDAY 03/03/19 03/07/19 Unknown Topiramate 50 mg PO BID 03/03/19 03/03/19 Unknown clonazePAM [Klonopin] 1 mg PO TID 03/03/19 03/03/19 Unknown Previous Rx's Medication Instructions Recorded Last Taken Type Amoxicillin/Potassium Clav 1 each PO BID #14 tablet 03/07/19 Unknown Rx [Augmentin 875-125 Tablet] Docusate Sodium [Colace CAP] 100 mg PO BID PRN #60 capsule 03/07/19 Unknown Rx Allergies Allergy/AdvReac Type Severity Reaction Status Date / Time No Known Allergies Allergy Verified 01/22/18 03:05 ED Review of Systems ROS: Stated complaint: ROSALIA Other details as noted in HPI Comment: Unobtainable due to pts medical conditions ED Past Medical Hx - Past Medical History Hx Congestive Heart Failure: No Hx Diabetes: No Hx Asthma: No Hx COPD: No Hx HIV: No Additional medical history: moderate intellectual disability, autism - Social History Smoking Status: Never Smoker - Medications Home Medications: Home Medications Medication Instructions Recorded Confirmed Last Taken Type Benztropine [Cogentin] 0.5 mg PO 03/03/[address] [Depakote Dr] 500 mg PO QHS 03/03/19 03/03/19 Unknown History Divalproex Sodium 250 mg PO TID 03/03/19 03/03/19 Unknown History FLUoxetine [PROzac] 20 mg PO DAILY 03/03/19 03/03/19 Unknown History Miralax 1 tsp PO QDAY 03/03/19 03/07/19 Unknown History Topiramate 50 mg PO BID 03/03/19 03/03/19 Unknown History clonazePAM [Klonopin] 1 mg PO TID 03/03/19 03/03/19 Unknown History Amoxicillin/Potassium Clav 1 each PO BID #14 tablet 03/07/19 Unknown Rx [Augmentin 875-125 Tablet] Docusate Sodium [Colace CAP] 100 mg PO BID PRN #60 capsule 03/07/19 Unknown Rx ED Physical Exam - General Limitations: Other (Patient is in complete respiratory distress tripoding and using accessory muscles to breathe) General appearance: in distress - Head Head exam: Present: atraumatic - Eye Eye exam: Present: normal appearance - ENT ENT exam: Present: mucous membranes dry - Neck Neck exam: Present: normal inspection - Respiratory Respiratory exam: Present: respiratory distress, rales, accessory muscle use - Cardiovascular Cardiovascular Exam: Present: tachycardia - GI/Abdominal GI/Abdominal exam: Present: soft, normal bowel sounds. Absent: distended, tenderness - Extremities Exam Extremities exam: Present: normal inspection - Back Exam Back exam: Present: normal inspection - Neurological Exam Neurological exam: Present: alert, other (Patient is alert but in complete respiratory distress. Patient would not allow placement of a nonrebreather or a BVM) - Psychiatric Psychiatric exam: Present: other (Unable to assess completely due to the patient's condition) - Skin Skin exam: Present: warm, dry, intact, normal color, other. Absent: rash - Intubation Time Out Performed: Yes Sedative: Etomidate Paralytic: Succinylcholine Size: 3 ET Tube Size: 7.5 Tube Secured Depth (cm): 24 Tube Secured Location: lips Tube Placement Confirmation: visualized tube passing t Patient Tolerated Procedure: well Intubation Complications: none - IO Right Tibia Consent Obtained: emergent situation IO Instrument Used to Penetrate the Cortex: battery powered IO drill Patient Tolerated Procedure: well Complications: none ED Medical Decision Making - Medical Decision Making Active definitive airway was established patient heart rate decreased to 50 bpm Patient became pulseless and CPR was initiated ACLS protocol was followed Please see code sheet Time of is 9:58 AM Critical care attestation.: If time is entered above; I have spent that time in minutes in the direct care of this critically ill patient, excluding procedure time. ED Disposition Clinical Impression: Respiratory arrest, Cardiac arrest Disposition: DC-20 Is pt being admited?: No Does the pt Need Aspirin: No Referrals: PRIMARY CARE, [Primary Care Provider] - 3-5 Days Time of Disposition: 10:05
== END 2020-06-30 13:09 ==
LOC: ED 09:19
DX: I46.9 Cardiac arrest, cause unspecified (principal); Z79.2 Long term (current) use of antibiotics; Z79.899 Other long term (current) drug therapy
CPT/HCPCS: 31500; 36680; 92950; 99285; J0330; J2250